=== PATIENT | male | born 1960 | race Caucasian/White ===

== ENCOUNTER 2017-03-25 08:10 | Emergency (ER) | payer MEDICAID ==
[~2017-03-25] VITALS: Ht 182.9 cm; Wt 77.1 kg
[~2017-03-25 08:10] MED LIST: MET500T PO
[2017-03-25 08:52] VITALS: BP 152/89
[2017-03-25] MEDS ORDERED: HYDROcodone-ACET 7.5/325MG TAB PO ONE (09:15)
== END 2017-03-25 11:02 | disposition home or self-care (01) ==
LOC: ER 08:10
DX: S33.5XXA Sprain of ligaments of lumbar spine, initial encounter (principal); J44.9 Chronic obstructive pulmonary disease, unspecified; I25.10 Atherosclerotic heart disease of native coronary artery without angina pectoris; E78.5 Hyperlipidemia, unspecified; I10 Essential (primary) hypertension; G89.29 Other chronic pain; M54.9 Dorsalgia, unspecified; F17.210 Nicotine dependence, cigarettes, uncomplicated; Z79.899 Other long term (current) drug therapy; W07.XXXA Fall from chair, initial encounter; Y93.89 Activity, other specified; Y92.89 Other specified places as the place of occurrence of the external cause; Y99.8 Other external cause status
CPT/HCPCS: 36415; 72100; 84484; 93005